=== PATIENT | female | born 1940 | race Two or more races ===

== ENCOUNTER 2025-04-18 13:17 | Outpatient (CLI) | payer OTHER, BC ==
[~2025-04-18 13:17] MED LIST: ATORVASTATIN CA10 MG PO; LOSARTAN POTAS100 MG PO; METFORMIN HCL500 M4 PO
== END 2025-04-18 13:29 | disposition home or self-care (01) ==
LOC: TOM 13:17
PROVIDERS: ATTEND Internal Medicine Pulmonary Disease
DX: R06.2 Wheezing (principal)